=== PATIENT | female | born 1950 | race Caucasian/White ===

== ENCOUNTER 2024-12-21 07:43 | Outpatient (AMB) | payer MEDICARE, BC, SELFPAY ==
--- NOTE | 2024-12-21 07:48 | A.OFFVIS_ITS ---
Vital Signs 12/21/24 07:53 Height 5 ft 3.74 in Weight 143 lb 11.862 oz BMI 24.9 BP 134/84 Blood Pressure Location Rt brachial Position Sitting Pulse 71 Pulse Source Pulse Oximeter Pulse Oximetry (%) 97 Oxygen Delivery Method Room Air Intake Visit Reasons: Osteoporosis Intake Note: New patient externally referred by PCP for Osteoporosis. 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 Diagnosis occurred after a bone density test on July 10. She has a history of osteopenia but has not received prior treatment for osteoporosis. Her femoral neck T-score was -2.0. She denies fractures and reports family history of osteoporosis and breast cancer. Her height may have decreased from 5'4 to 5'3 . No significant menopausal symptoms reported post-hysterectomy. Regular dental care is maintained. Lifestyle includes weight-bearing exercises. The patient seeks information on non-pharmacological management options. First diagnosed in 06/2024 . No history of pathologic fracture or ONJ. Has several servings of dietary calcium per day in the form of broccoli, yogurt . Not Takes Calcium supplement Takes ? IU of Vitamin D daily. The patient has been focused on increasing her dietary calcium intake, consuming foods such as oatmeal, yogurt, and cottage cheese. She opts against juice due to sugar content. She aims to achieve 1200 mg of calcium per day primarily through diet rather than supplements. This dietary approach is part of her management plan for osteoporosis as she prefers to meet her calcium needs naturally. Denies ever using PPI, anticoagulant, antiepileptic or glucocorticoid medication. Does weight bearing exercise 3 days per week in the form of row . Fracture history: NO Height loss: ? 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 No planned upcoming dental work or extractions. No tabacco use or excessive ETOH use DXA dated 07/10/2024 : T-score in the femoral neck of-2.5 standard deviation Labs: [facility] Medical History (Updated 12/21/24 @ 08:01 by Clayton Willoughby MD) Osteoporosis Surgical History History of partial hysterectomy Family History Mother Osteoporosis History of colon cancer High blood pressure Father High blood pressure Social History Alcohol intake: current Alcohol intake frequency: holidays/special occasions only Patient Tobacco Use Status: Never used Tobacco Physical Exam Vital Signs: Last Vital Signs Pulse 71 12/21/24 07:53 BP 134/84 12/21/24 07:53 Pulse Ox 97 12/21/24 07:53 Oxygen Delivery Method Room Air 12/21/24 07:53 BMI result Body Mass Index 24.9 There are no Cushingoid features. Absence of blue sclera. Absence of kyphosis. Thyroid gland is of nl size and weighs 15 gms. There are no thyroid nodules palpated. Lungs CTA. Heart S1 S2 Reg R/R Abdominal exam benign. Muscle strength 5/5 . Examination of spine reveals absence of tenderness on palpation Assessment & Plan Assessment & Plan (1) Osteoporosis: Code(s): M81.0 - Age-related osteoporosis without current pathological fracture Category: Medical Plan: 74-year-old white female with a history of recently diagnosed osteoporosis. Rule out secondary causes . Plan is to check a 24 hour urine for calcium, creatinine, TSH, free T4, SPEP, urine immunofixation, phosphorus level. Will ensure 1200 mg of calcium and 2000 IU of vitamin-D 3. Assuming secondary workup was negative could either consider observation or use of an anti resorptive like oral or intravenous bisphosphonate. 1. Osteoporosis: The patient's osteoporosis management will focus on lifestyle modifications with exercise and dietary changes. Given her borderline T-score and family history, pharmacological intervention remains a potential consid eration if future bone health assessments indicate increased risk. Calcium and Vitamin D supplementation are advised with re-evaluation in two years unless clinically necessary before that. 2. Family History of Breast Cancer: Although Raloxifene could have been considered due to its dual role, the patient prefers non-pharmacological strategies presently. This will remain a consideration should there be any change in circumstances or risk reassessment. I discussed with the patient her new diagnosis of osteoporosis, reassuring her of its current nature and low fracture risk. We reviewed her bone health management including dietary and exercise strategies to mitigate risks. I conveyed that pharmacological interventions might not be immediately necessary but remain an option contingent on future assessments. I explained the family history implications, notably osteoporosis and breast cancer risks, and the potential benefit of medications like Raloxifene. I outlined the importance of continued weight-bearing activities and the proactive measure of retesting bone mineral density in two years or sooner if indicated. The patient voiced understanding and agreement with the current approach. I discussed with the patient her new diagnosis of osteoporosis, reassuring her of its current nature and low fracture risk. We reviewed her bone health management including dietary and exercise strategies to mitigate risks. I conveyed that pharmacological interventions might not be immediately necessary but remain an option contingent on future assessments. I explained the family history implications, notably osteoporosis and breast cancer risks, and the potential benefit of medications like Raloxifene. I outlined the importance of continued weight-bearing activities and the proactive measure of retesting bone mineral density in two years or sooner if indicated. The patient voiced understanding and agreement with the current approach. The patient had an opportunity to ask questions regarding treatment plan. The patient expressed understanding and agreement with the above treatment plan. Patient was informed and verbally consented to the use of an ambient scribe for clinic note documentation during this visit. Orders: Orders Protein Electrophoresis, Serum Today M81.0 - Age-related osteoporosis without current pathological fracture Phosphorus Today M81.0 - Age-related osteoporosis without current pathological fracture Calcium, 24 Hr Ur Today M81.0 - Age-related osteoporosis without current pathological fracture Creatinine, 24 Hr Group Today M81.0 - Age-related osteoporosis without current pathological fracture Free T4 (Free Thyroxine) Today M81.0 - Age-related osteoporosis without current pathological fracture TSH reflex Free T4 Today M81.0 - Age-related osteoporosis without current pathological fracture Vitamin D 25-OH Total Today M81.0 - Age-related osteoporosis without current pathological fracture Immunofixation, Random Urine Today M81.0 - Age-related osteoporosis without current pathological fracture Coding Level of Care Code New Pt Level 4 (07736) Diagnoses Osteoporosis M81.0
[2024-12-21 07:53] VITALS: BP 134/84; PULSE 71; O2SAT 97; BMI 24.9
== END 2024-12-21 08:36 | disposition home or self-care (01) ==
PROVIDERS: Visit Provider Internal Medicine Endocrinology, Diabetes & Metabolism
DX: M81.0 Age-related osteoporosis without current pathological fracture (principal)
CPT/HCPCS: 99204

== ENCOUNTER → 2024-12-21 07:43 | Outpatient (BNVA) | payer MEDICARE, BC, SELFPAY | PROVIDERS: Visit Provider Internal Medicine Endocrinology, Diabetes & Metabolism | DX: M81.0 Age-related osteoporosis without current pathological fracture (principal) | CPT/HCPCS: 99202 ==

== ENCOUNTER 2024-12-23 08:04 | Outpatient (REF) | payer MEDICARE, BC, SELFPAY ==
[2024-12-23 10:58] LABS: Phosphorus 3.9 mg/dL (2.7-4.5)
[2024-12-23 11:17] LABS: Free T4 (Free Thyroxine) 0.99 ng/dL (0.71-1.85); TSH reflex Free T4 3.04 uIU/mL (0.32-4.0); Vitamin D 25-OH Total 54.1 ng/mL (>30)
[2024-12-23 13:35] LABS: Total Volume 24 Hour Urine 3000 mL
[2024-12-23 13:40] LABS: Creatinine, mg/dL 31.67
[2024-12-24 21:09] LABS: PES - Abn Protein Band 1 0.9 g/dL (NONE DETECTED); Prot Elec - Alpha1 0.3 g/dL (0.2-0.3); Prot Elec - Alpha2 0.8 g/dL (0.5-0.9); Prot Elec - Beta 1 0.4 g/dL (0.4-0.6); Prot Elec - Beta 2 0.3 g/dL (0.2-0.5); Prot Elec - Gamma 1.3 g/dL (0.8-1.7); Prot Elec - Total Protein 7.1 g/dL (6.1-8.1)
[2024-12-25 17:48] LABS: Calcium, 24 Hr Urine 132 mg/24 h; Calcium/Creatinine Ratio 138 mg/g creat (30-275); Creatinine 24Hr Urine 0.96 g/24 h (0.50-2.15)
== END 2024-12-23 08:05 | disposition home or self-care (01) ==
LOC: HO.10HDL 08:04
PROVIDERS: Visit Provider Internal Medicine Endocrinology, Diabetes & Metabolism
DX: M81.0 Age-related osteoporosis without current pathological fracture (principal)
CPT/HCPCS: 82306; 82340; 82570; 84100; 84165; 84439; 84443; 86335

== ENCOUNTER 2025-03-23 07:58 | Outpatient (AMB) | payer MEDICARE, BC, SELFPAY ==
--- OUTSIDE RECORDS SUMMARY | 2024-03-09 05:30 | XMS_ITS ---
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 Name Role Phone Khoi GUY, Bret Primary Care Provider Arielle Cao Unavailable [phone] Edna Mcdonald Unavailable [phone] Encounters Encounter Location Date Provider Diagnosis [address] [address] 03/09/2024 Edna Mcdonald Plan Of Treatment No Information Progress Notes * Lexi CHOIOB:1950 (74 yo F)Acc No.[id number]:03/09/2024 Progress Notes Patient: Keya STEPHENS Provider: Wong Mcdonald DPM :1950 A ge:73 Y S ex:Female Date:03/09/2024 Address:[address] [place], [place] [id number] Pcp:Bret Westfall MD Subjective: * Chief Complaints: * * Medical History: Objective: * Vitals: Assessment: Plan: * Treatment: * Images: * The named appointment provid er may or may not be the originator of this progress note, and it is not deemed complete until electronically signed by the appointment provider. Sign off status: Pending * Provider: Wong Mcdonald DPM Date: 03/09/2024 Generated for Jenna darling/Shanel/eTransmitting on: 03/23/2025 08:02 AM EDT
--- NOTE | 2025-03-23 08:03 | MHC.OFFVIS ---
Vital Signs 03/23/25 08:06 Height 5 ft 3.74 in Weight 143 lb 15.39 oz BMI 24.9 BP 146/84 H Blood Pressure Location Rt brachial Position Sitting Pulse 79 Pulse Source Pulse Oximeter Pulse Oximetry (%) 97 Oxygen Delivery Method Room Air Intake Visit Reasons: Osteoporosis Intake Note: Patient present today for Osteoporosis follow up. 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 Diagnosis occurred after a bone density test on July 10. She has a history of osteopenia but has not received prior treatment for osteoporosis. Her femoral neck T-score was -2.0. She denies fractures and reports family history of osteoporosis and breast cancer. Her height may have decreased from 5'4 to 5'3 . No significant menopausal symptoms reported post-hysterectomy. Regular dental care is maintained. Lifestyle includes weight-bearing exercises. The patient seeks information on non-pharmacological management options. First diagnosed in 06/2024 . No history of pathologic fracture or ONJ. Has several servings of dietary calcium per day in the form of broccoli, yogurt . Not Takes Calcium supplement Takes ? IU of Vitamin D daily. The patient has been focused on increasing her dietary calcium intake, consuming foods such as oatmeal, yogurt, and cottage cheese. She opts against juice due to sugar content. She aims to achieve 1200 mg of calcium per day primarily through diet rather than supplements. This dietary approach is part of her management plan for osteoporosis as she prefers to meet her calcium needs naturally. Denies ever using PPI, anticoagulant, antiepileptic or glucocorticoid medication. Does weight bearing exercise 3 days per week in the form of row . Fracture history: NO Height loss: ? 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 No planned upcoming dental work or extractions. No tabacco use or excessive ETOH use DXA dated 07/10/2024 : T-score in the femoral neck of-2.5 standard deviation Labs: Secondary workup showed the presence of a monoclonal spike The patient is a 74-year-old female presenting with concerns regarding monoclonal gammopathy of undetermined significance (MGUS) and osteoporosis. The MGUS was identified during a routine workup, which screened for multiple myeloma and returned positive for MGUS. The patient was referred to a supply controller at [facility], who confirmed the benign nature of the MGUS after further blood tests. Regarding osteoporosis, the patient's bone density test showed a borderline T-score of - 2.5, indicating borderline osteoporosis. The patient has been taking vitamin D3 and calcium supplements as part of her management plan. The bone density has been stable with minor decreases noted in the hip region, and no prior treatment for osteoporosis has been administered. - Labs: Positive for monoclonal gammopathy of undetermined significance (MGUS) - Bone Density Test: Borderline T-score of 2.5, indicating borderline osteoporosis - 24-hour urine collection: Normal - Phosphorus level: Normal - Thyroid function: Normal - Vitamin D level: Normal [facility] Medical History (Updated 12/21/24 @ 08:01 by Clayton Willoughby MD) Osteoporosis Surgical History History of partial hysterectomy Family History Mother Osteoporosis History of colon cancer High blood pressure Father High blood pressure Social History Alcohol intake: current Alcohol intake frequency: holidays/special occasions only Patient Tobacco Use Status: Never used Tobacco Physical Exam Vital Signs: Last Vital Signs Pulse 79 03/23/25 08:06 BP 146/84 H 03/23/25 08:06 Pulse Ox 97 03/23/25 08:06 Oxygen Delivery Method Room Air 03/23/25 08:06 BMI result Body Mass Index 24.9 Assessment & Plan Assessment & Plan (1) Osteoporosis: Code(s): M81.0 - Age-related osteoporosis without current pathological fracture Category: Medical Plan: 74-year-old white female with a history of recently diagnosed osteoporosis. Secondary workup showed the presence of monoclonal antibody. 1. Monoclonal gammopathy of undetermined significance MGUS) The patient was advised to follow up with her supply controller to monitor the condition, as it is currently benign. Continued observation is recommended to ensure no progression to multiple myeloma. 2. Osteoporosis The patient's bone density is borderline, and she is advised to continue taking vitamin D3 and calcium supplements. Weight-bearing exercises are encouraged to improve bone density. A follow-up bone density test is planned for 16 months to monitor any changes. I suggested the possibility of doing the bone density with trabecular bone score or TBS if available as this may provide additional insight into whether pharmacologic therapy is necessary The patient had an opportunity to ask questions regarding treatment plan. The patient expressed understanding and agreement with the above treatment plan. Patient was informed and verbally consented to the use of an ambient scribe for clinic note documentation during this visit. Coding Level of Care Code Est Pt Level 3 (99043) Diagnoses Osteoporosis M81.0
[2025-03-23 08:06] VITALS: BP 146/84; PULSE 79; O2SAT 97; BMI 24.9
== END 2025-03-23 08:34 | disposition home or self-care (01) ==
LOC: HO.ENCR 07:58
PROVIDERS: PCP Internal Medicine; Visit Provider Internal Medicine Endocrinology, Diabetes & Metabolism
DX: M81.0 Age-related osteoporosis without current pathological fracture (principal)
CPT/HCPCS: 99213

== ENCOUNTER → 2025-03-23 07:58 | Outpatient (BNVA) | payer MEDICARE, BC, SELFPAY | PROVIDERS: PCP Internal Medicine; Visit Provider Internal Medicine Endocrinology, Diabetes & Metabolism | DX: M81.0 Age-related osteoporosis without current pathological fracture (principal) | CPT/HCPCS: 99212 ==